=== PATIENT | female | born 1990 ===

== ENCOUNTER 2022-12-02 19:45 | Inpatient (IN) | payer OTHER ==
[2022-12-02] MEDS ORDERED: DEXTROSE 5%-LACTATED RINGERS 1,000 ML IV SCH (20:15)
[2022-12-02 21:10] LABS: INR 0.87 (0.83-1.09); PROTHROMBIN TIME (PATIENT) 10.1 SEC (9.7-13.0)
[2022-12-02 21:13] LABS: ACTIVATED PTT 27.6 SECONDS (25.2-36.5)
[2022-12-02 21:22] LABS: BASO % 0.4 % (0-2.0); EOS % 1.1 % (0-4.5); HEMATOCRIT 35.3 % (32.4-45.2); HEMOGLOBIN 12.1 GM/dL (10.7-15.3); LYMPH % 27.1 % (8-40); MCH 29.9 pg (25.7-33.7); MCHC 34.2 g/dl (32.0-36.0); MEAN CELL VOLUME 87.3 fl (80-96); MEAN PLT VOLUME 9.1 fl (7.5-11.1); MONO % 6.8 % (3.8-10.2); NEUT % 64.6 % (42.8-82.8); PLATELET COUNT 200 10^3/uL (134-434); RBC 4.05 M/mm3 (3.60-5.2); RDW 13.5 % (11.6-15.6); WHITE BLOOD COUNT 6.8 K/mm3 (4.0-10.0)
[2022-12-02] MEDS ORDERED: MISOPROSTOL 100 MCG TABLET PV SCH (21:45)
[2022-12-02 22:01] VITALS: BMI 35.5
[2022-12-02 22:16] LABS: POTASSIUM 3.9 mmol/L (3.5-5.1)
[2022-12-02 22:17] LABS: CALCIUM 8.8 mg/dL (8.5-10.1)
[2022-12-02 22:18] LABS: BLOOD UREA NITROGEN 14.7 mg/dL (7-18)
[2022-12-02 22:21] LABS: CREATININE 0.7 mg/dL (0.55-1.3)
[2022-12-02] MEDS ORDERED: MISOPROSTOL 25 MCG TABLET (COMPOUNDED BY PHARMACY) PV SCH (22:30)
[2022-12-03] MEDS ORDERED: FENTANYL/BUPIVACAINE/NS/PF - PCEA - 50 ML DISP.SYRIN EP ONE (01:40)
[2022-12-03] MEDS ORDERED: SODIUM CHLORIDE 1,000 ML IV STA (01:45)
[2022-12-03] MEDS ORDERED: BUPIVACAINE HCL/PF 0.25% (2.5MG/ML) 10 ML VIAL ONE (01:46)
[2022-12-03] MEDS ORDERED: LIDO 2%/EPI 1:200000 PRESRVFRE (20 ML SDVIAL) ONE (01:46)
[2022-12-03] MEDS ORDERED: LIDOCAINE HCL 1% PRESERVATIVE FREE - 30ML VIAL ONE (01:50)
[2022-12-03] MEDS ORDERED: OXYTOCIN 20 UNITS in 0.9% NS 20 UNIT/1,000 ML INFUS.BAG IV ONE (01:51)
[2022-12-03 02:43] LABS: CORD BASE EXCESS -3.6 mmol/L (0-2); CORD PCO2 42.7 mmHg (30-78); CORD pH 7.334 (7.14-7.44)
[2022-12-03 02:44] LABS: CORD BASE EXCESS -1.8 mmol/L (0-2); CORD HCO3 22.2 mmHg (20-29); CORD HCO3 24.9 mmHg (20-29); CORD PCO2 49.3 mmHg (30-78); CORD pH 7.321 (7.14-7.44)
[2022-12-03] MEDS ORDERED: IBUPROFEN 600 MG TABLET (FP) PO ONE (03:52)
[2022-12-03] MEDS: IBUPROFEN 600 MG TABLET (FP) PO PRN ×3 (03:55→19:26)
[2022-12-03] MEDS ORDERED: BENZOCAINE 28 GM HEMORRHOIDAL OINTMENT TP PRN (04:27)
[2022-12-03] MEDS ORDERED: ACETAMINOPHEN 325 MG TABLET (FP) PO PRN (04:27)
[2022-12-03] MEDS ORDERED: WITCH HAZEL 50% (TUCKS) 40 PAD/JAR PAD TP PRN (04:27)
[2022-12-03] MEDS ORDERED: OXYTOCIN 20 UNITS in 0.9% NS 20 UNIT/1,000 ML INFUS.BAG IV SCH (04:30)
[2022-12-03] MEDS ORDERED: ESCITALOPRAM OXALATE 10 MG TABLET PO SCH (10:00)
[2022-12-03] MEDS: ESCITALOPRAM OXALATE 10 MG TABLET PO SCH (21:34)
[2022-12-04 08:01] LABS: BASO % 0.4 % (0-2.0); EOS % 1.6 % (0-4.5); HEMATOCRIT 33.1 % (32.4-45.2); HEMOGLOBIN 11.3 GM/dL (10.7-15.3); LYMPH % 26.9 % (8-40); MCH 30.5 pg (25.7-33.7); MCHC 34.3 g/dl (32.0-36.0); MEAN CELL VOLUME 88.9 fl (80-96); MEAN PLT VOLUME 9.4 fl (7.5-11.1); MONO % 6.7 % (3.8-10.2); NEUT % 64.4 % (42.8-82.8); PLATELET COUNT 179 10^3/uL (134-434); RBC 3.72 M/mm3 (3.60-5.2); RDW 13.5 % (11.6-15.6); WHITE BLOOD COUNT 8.7 K/mm3 (4.0-10.0)
[2022-12-04] MEDS: ESCITALOPRAM OXALATE 10 MG TABLET PO SCH (21:12)
[2022-12-04 22:04] VITALS: RESP 18
[2022-12-05 09:30] VITALS: BP 115/55; PULSE 83; TEMP 98.2
== END 2022-12-05 12:25 | disposition home or self-care (01) | DRG 807 ==
LOC: JERBED 19:45 → JLDR 20:06 → J3W 12-03 04:03
PROVIDERS: ADMIT Obstetrics & Gynecology Maternal & Fetal Medicine; ATTEND Obstetrics & Gynecology Maternal & Fetal Medicine
PROC: 10E0XZZ Delivery of Products of Conception, External Approach (ICD-10-PCS; principal; 2022-12-03)
PROC: 0HQ9XZZ Repair Perineum Skin, External Approach (ICD-10-PCS; 2022-12-03)
DX: O40.3XX0 Polyhydramnios, third trimester, not applicable or unspecified (principal); Z37.0 Single live birth; O70.0 First degree perineal laceration during delivery; O35.8XX1 Maternal care for other (suspected) fetal abnormality and damage, fetus 1; Z3A.39 39 weeks gestation of pregnancy
CPT/HCPCS: 36415; 36600; 80048; 82803; 85025; 85610; 85730; 86780; 86850; 86900; 86901; 88307-TC